=== PATIENT | male | born 1955 | race Caucasian/White ===

== ENCOUNTER 2025-03-07 07:47 | Emergency (ER) | payer OTHER, SELFPAY ==
[2018-01-17 13:02] VITALS: BMI 32.5
[2025-03-07] VITALS (16 sets, daily range): BP systolic 115–140; BP diastolic 67–93; PULSE 49–82; RESP 12–39; TEMP 36.4; O2SAT 90–100; BMI 32.5
--- NOTE | 2025-03-07 07:51 | DI.RAD.S_ITS ---
PROCEDURE: XR CHEST 1V INDICATIONS: Chest Pain TECHNIQUE: One view of the chest was acquired. COMPARISON: Outside Facility, CR, XR CHEST 2V, 05/14/2023, 14:40. FINDINGS: Surgical changes and devices: Abdominal surgical clips. Lungs and pleura: Lungs are clear. No pleural effusions or pneumothorax. Mediastinum: Mediastinal contours appear normal. Heart size is normal. Bones and chest wall: No suspicious bony lesions. Overlying soft tissues appear unremarkable. IMPRESSION: No acute cardiopulmonary abnormality is seen. Dictated by: Brian Woody M.D. on 03/07/2025 at 8:25 Approved by: Brian Woody M.D. on 03/07/2025 at 8:26
--- NOTE | 2025-03-07 07:51 | EKG_ITS ---
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
--- NOTE | 2025-03-07 08:21 | PC.NURSE ---
Pt reports feeling palpitations on Tuesday. Hx of afib on medication for rate control and blood thinner. Pt states he was not a candidate for ablation due to arteries being affected by cancer treatment. 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 Pt states he has lower extremity edema that is controlled by compression socks. Pt states he is usually sob on exertion. Pt reports he is sob right now due to recent ambulation. afib noted on monitor.
--- NOTE | 2025-03-07 08:24 | ED.CHESTPAIN ---
HPI - Chest Pain General Chief Complaint: Chest Pain Stated Complaint: AFIB , Weak, hard time walking Time Seen by Provider: 03/07/25 08:11 Source: family Mode of arrival: Family Vehicle History of Present Illness HPI narrative: Patient here with . Had syncopal episode this morning just prior to arrival. Duration less than 2 minutes. Patient had made him have some tea this morning and walked to sit down in the recliner. turned around to find him pale, unconscious. Had his right arm behind him. She shook him to wake him up he would not. And then eventually was able to say his name. No seizure activity. This is never happened before. Patient has history of atrial fibrillation on Eliquis. He has felt short of breath and weak all of the this week. Patient sees Cardiology Dr. Dial with [facility]. Patient seen by Dr. Durand, February 12 last month for shortness of breath. He is being evaluated for asthma but patient states this shortness of breath there this week is different. No chest pain no palpitations. He is in AFib and this is not new. This is rate controlled. He has been cardioverted in the past. He has never passed out with AFib before. Patient denies any symptoms before fainting, no chest pain dizziness shortness of breath back pain abdominal pain nausea or sweating Related Data Home Medications ?Medication ?Instructions ?Recorded ?Confirmed fluticasone propionate 50 1 spray intranasal BID PRN 01/02/18 02/12/25 mcg/actuation nasal Congestion spray,suspension (Flonase Allergy Relief) pentoxifylline 400 mg 400 mg PO TID 01/02/18 02/12/25 tablet,extended release apixaban 5 mg tablet (Eliquis) 5 mg PO BID 01/02/25 02/12/25 dofetilide 500 mcg capsule 500 mcg PO BID 01/02/25 02/12/25 fexofenadine 180 mg tablet 180 mg PO DAILY PRN 01/02/25 02/12/25 (Kezia Hives) metoprolol tartrate 25 mg tablet 25 mg PO DAILY PRN 01/02/25 02/12/25 Previous Rx's ?Medication ?Instructions ?Recorded fluticasone fur. 200 mcg-umeclid 1 inh inhalation DAILY #60 ea 01/02/25 62.5 mcg-vilant 25 mcg inhalat.powder (Trelegy Ellipta) Allergies Allergy/AdvReac Type Severity Reaction Status Date / Time No Known Drug Allergies Allergy Verified 02/12/25 09:07 Review of Systems Review of Systems Narrative: GENERAL: Negative chills, fatigue, malaise, fever, sweats. HEENT: Negative sinus pain, ear pain, sore throat RESPIRATORY: Positive dyspnea, negative cough CARDIOVASCULAR: Negative chest pain, palpitations, positive syncope GASTROINTESTINAL: Negative vomiting, nausea, abdominal pain : Negative dysuria, frequency, hematuria MUSCULOSKELETAL: Negative muscle or bony pain SKIN: Negative rash, skin lesions NEUROLOGIC: Negative weakness, numbness ROS Unobtainable: All systems reviewed & are unremarkable except as noted in HPI and below Patient History Medical History Right testicular cancer Bruises easily Anticoagulant long-term use Nocturia Non Hodgkin's lymphoma Chronic deep vein thrombosis (DVT) Osteoarthritis Varicose veins of both lower extremities Fingertip amputation Allergic rhinitis Arthritis Social History (System 01/18/18 @ 09:38 by Alejandra Toth) household members: spouse Smoking Status: Never smoker alcohol intake: current Smoking Status: Never smoker alcohol intake frequency: a few times a month Exam Narrative Exam Narrative: GENERAL: in no distress, not toxic not dyspneic HEAD: Normocephalic. EYES: Pupils equal round ENT: Mucous membranes moist. NECK: Trachea midline. CARDIOVASCULAR: Irregularly irregular RESPIRATORY: Clear to auscultation. Breath sounds equal bilaterally. No wheezes, rales, or rhonchi. GASTROINTESTINAL: Abdomen soft, non-tender EXTREMITIES: No gross deformities. BACK: No flank tenderness. NEURO: AOx4. Clear speech no facial droop light touch intact to bilateral face hands and legs strong equal supervisor transferring and boxing. Negative pronator drift. Fast exam is negative SKIN: Warm and dry PSYCH: Not anxious, is cooperative Initial Vital Signs Initial Vital Signs: Vital Signs Pulse Rate 65 03/07/25 07:55 Blood Pressure 115/75 03/07/25 07:55 Pulse Oximetry 100 03/07/25 07:55 Course Orders Ordered: Discontinued Medications Aspirin (Aspirin 81 Mg Chew Tab) 324 mg PO NOW ONE Stop: 03/07/25 07:52 Last Admin: 03/07/25 08:05 Dose: Not Given Documented By: JERSON Sodium Chloride (Normal Saline 0.9%) 500 mls @ 1,000 mls/hr IV BOLUS ONE Stop: 03/07/25 08:52 Last Infusion: 03/07/25 09:40 Dose: Infused Documented By: Admin: 03/07/25 08:39 Dose: 1,000 mls/hr Documented By: JERSON Vital Signs Vital signs: Vital Signs - 8 hr 03/07/25 07:58 Temperature 97.6 F Pulse Rate 82 Respiratory Rate 12 Blood Pressure 115/75 Pulse Oximetry 98 Oxygen Delivery Method Room Air MDM - Chest Pain Medical Records Data Medical records narrative: Dear Jacqueline Hills PA-C, Dr. Mauricio Sharma I would the pleasure of seeing your patient Aravind Reed who has a pleasant 69-year-old male with a history of obesity on zepbound, testicular cancer in his 20s status post chemotherapy, allergic rhinitis on Kezia and Flonase, atrial fibrillation starting around 2022 on dofetilide, metoprolol and anticoagulation, COVID-19 around 2022 who presents today for evaluation of chronic shortness of breath. His PCP and patient notes he has been dyspneic since 2022 as soon as he went into atrial fibrillation in his annual wellness visit. He was previously walking 3 miles a day previously. He was states that it he was in and out of atrial fibrillation and usually would feel anxious. He underwent a cardioversion initially and then through cardiology management on dofetilide metoprolol and anticoagulation. His shortness of breath persisted since his onset of atrial fibrillation. He was reassured that it was not related to cardiac issue and has had extensive cardiac testing that we did not have access to in terms of cardiac MRI, JUAN, echo and even a CT chest abdomen pelvis.. He was feel dyspneic walking from the parking lot to the store. Interestingly he was states he has albuterol inhaler the uses when he gets congestion addition to Flonase. He had PFTs in March of 2024 read as very mild obstruction, no significant response to bronchodilators however there is a 44% improvement in mid expiratory flows. He shows me his labs showing an AUC of 100. He reportedly had a chest x-ray that was normal but we did not have a copy of the report in neither his CT chest abdomen pelvis which was done in 2023 at [facility]. I recommend a trial of triple therapy with Trelegy for potential asthma. He reports he did not feel much of a difference although now that he was stopped it he was noticing some worsening days. We also reviewed that deconditioning could be contributing given his 2 years of shortness of breath though may not has been the initial culprit. Other differentials were likely related to heart failure preserved ejection fraction and it was not clear ever had a right heart catheterization to assess for this. Finally long COVID could be an etiology given the timing shortness of breath in 2022 although it was more temporarily related to atrial fibrillation that it was he was COVID infection. He reports he has been out of atrial fibrillation since August 2024 with the Tikosyn. Lab Data 03/07/25 08:10 03/07/25 08:10 Labs: Lab Results 03/07/25 Range/Units 08:10 WBC 5.3 (4.5-11.0) X10^3/uL RBC 3.99 L (4.5-5.9) X10^6/uL Hgb 14.0 (13.5-17.5) g/dL Hct 39.7 L (41-53) % MCV 99.7 (80-100) fL MCH 35.2 H (26-34) PG MCHC 35.3 (30-36) % RDW 12.9 (11.6-14.8) % Plt Count 269 (150-400) X10^3/uL Neut % (Auto) 69.3 (50-75) % Lymph % (Auto) 17.0 L (25-40) % [place] % (Auto) 10.6 (3-14) % Eos % (Auto) 2.4 (2-4) % Baso % (Auto) 0.7 (0-2) % Neut # (Auto) 3700 (0440-2348) /uL Lymph # (Auto) 900 L (6445-7008) /uL [place] # (Auto) 600 (0-900) /uL Eos # (Auto) 100 (0-450) /uL Baso # (Auto) 0 (0-100) /uL PT 14.1 H (9.4-12.5) SECONDS INR 1.2 (0.9-1.3) APTT 34 (25.1-36.5) SECONDS D-Dimer 242 (<500) ng/ml Sodium 136 L (137-145) mmol/L Potassium 4.6 (3.4-5.1) mmol/L Chloride 104 (98-107) mmol/L Carbon Dioxide 24 (22-32) mmol/L BUN 14 (9-20) mg/dL Creatinine 0.93 (0.66-1.25) mg/dL Estimated GFR > 60 (>60) mL/min BUN/Creatinine Ratio 15.1 (6-22) Glucose 93 (70-99) mg/dL Calcium 9.7 (8.4-10.2) mg/dL Magnesium 2.0 (1.6-2.3) mg/dL Total Bilirubin 1.0 (0.2-1.3) mg/dL AST 32 (17-59) IU/L ALT 29 (<50) IU/L Alkaline Phosphatase 96 (38-126) U/L Total Creatine Kinase 44 L (55-170) U/L Troponin I < 0.012 (0.01-0.034) ng/mL NT-Pro-B Natriuret Pep 788 H (<125) pg/mL Total Protein 7.6 (6.3-8.2) g/dL Albumin 4.3 (3.5-5.0) g/dL Globulin 3.3 (1.7-4.1) g/dL Albumin/Globulin Ratio 1.3 (1.0-2.8) Lipase 55 (23-300) U/L Imaging Data CT scan - head: Radiologist's Impression: [place] [address] CT Scan Report Signed Patient: Aravind Reed MR#: [id number] : 1955 Acct:[id number] Age/Sex: 69 / M Date of Service: 03/07/25 Loc: ED Accession Number: [id number] Procedure: CT head/brain wo con Ordering Provider: Crow Soares MD PROCEDURE: CT HEAD/BRAIN WO CON INDICATIONS: Syncope/dizzy TECHNIQUE: Noncontrast 4.5 mm thick angled axial sections acquired from the foramen magnum to the vertex, with coronal and sagittal reformats. For radiation dose reduction, the following was used: automated exposure control, adjustment of mA and/or kV according to patient size. COMPARISON: [facility], CT, CT ANGIO HEAD AND NECK, 03/07/2025, 8:28. FINDINGS: Image quality: Diagnostic. CSF spaces: Basal cisterns are patent. No extra-axial fluid collections. The ventricles are symmetric in size and shape. Brain: No intracranial bleeds or mass effect. There are minimal periventricular and deep white matter chronic small vessel ischemic changes. There is intracranial internal carotid artery atherosclerosis. Skull and face: Calvarium and visualized facial bones appear intact, without suspicious lesions. Sinuses: Visualized sinuses and mastoids are clear. IMPRESSION: No acute intracranial pathology. Dictated by: Dede Ortiz M.D. on 03/07/2025 at 9:17 Approved by: Dede Ortiz M.D. on 03/07/2025 at 9:17 CTA - brain/neck: Radiologist's Impression: [address] [address] [address] Scan Report Signed Patient: Aravind Reed MR#: [id number] : 1955 Acct:[id number] Age/Sex: 69 / M Date of Service: 03/07/25 Loc: ED Accession Number: [id number] Procedure: CT angio head and neck Ordering Provider: Crow Soares MD PROCEDURE: CT ANGIO HEAD AND NECK INDICATIONS: Syncope/dizzy TECHNIQUE: After the administration of intravenous contrast, 1 mm thick sections acquired from the aortic arch through the [place] of [place]. 3-dimensional pskayhn-qmahtqolq-hxwkhzgjmd (MIP) and/or volume rendering reformats were acquired of the central intracranial vasculature and neck separately. For radiation dose reduction, the following was used: automated exposure control, adjustment of mA and/or kV according to patient size. COMPARISON: [facility], CT, CT HEAD/BRAIN WO CON, 03/07/2025, 8:28. FINDINGS: Image quality: Diagnostic. Cerebral CT Angiogram: Internal carotid arteries: No acute findings. Intracranial ICA are patent with no significant stenosis. No occlusion. No aneurysm. Anterior cerebral arteries: Unremarkable. No significant stenosis. No occlusion. No aneurysm. Middle cerebral arteries: Unremarkable. No significant stenosis. No occlusion. No aneurysm. Posterior cerebral arteries: Unremarkable. No significant stenosis. No occlusion. No aneurysm. Basilar artery: Unremarkable. No significant stenosis. No occlusion. No aneurysm. Vertebral arteries: Unremarkable as visualized. Dural venous sinuses: Unremarkable given phase of enhancement. Other: Arterial phase appearance of the brain parenchyma is unremarkable. Neck CT Angiogram: Internal carotid arteries: Unremarkable. No significant stenosis. No dissection or occlusion. Common carotid arteries: Unremarkable. No significant stenosis. No dissection or occlusion. External carotid arteries: Unremarkable. No occlusion. Vertebral arteries: Unremarkable. No significant stenosis. No dissection or occlusion. Aortic Arch and Mediastinum: Partially visualized aortic arch unremarkable without evidence of aneurysm. Origins of the great vessels unremarkable. Other: Arterial phase soft tissues of the neck and chest are unremarkable. Right chest wall lipoma. IMPRESSION: No significant intracranial arterial abnormality is seen. No significant abnormality is seen within the arteries of the neck. Any quantitative measurements of stenosis were performed using NASCET criteria. Dictated by: Dede Ortiz M.D. on 03/07/2025 at 9:14 Approved by: Dede Ortiz M.D. on 03/07/2025 at 9:15 Chest x-ray: Radiologist's Impression: [address] [address] XRay Report Signed Patient: Aravind Reed MR#: [id number] : 1955 Acct:[id number] Age/Sex: 69 / M Date of Service: 03/07/25 Loc: ED Accession Number: [id number] Procedure: XR chest 1V Ordering Provider: Crow Soares MD PROCEDURE: XR CHEST 1V INDICATIONS: Chest Pain TECHNIQUE: One view of the chest was acquired. COMPARISON: Outside Facility, CR, XR CHEST 2V, 05/14/2023, 14:40. FINDINGS: Surgical changes and devices: Abdominal surgical clips. Lungs and pleura: Lungs are clear. No pleural effusions or pneumothorax. Mediastinum: Mediastinal contours appear normal. Heart size is normal. Bones and chest wall: No suspicious bony lesions. Overlying soft tissues appear unremarkable. IMPRESSION: No acute cardiopulmonary abnormality is seen. Dictated by: Brian Woody M.D. on 03/07/2025 at 8:25 Approved by: Brian Woody M.D. on 03/07/2025 at 8:26 MRI brain: Radiologist's Impression: [address] [address] Magnetic Resonance Report Signed Patient: Aravind Reed MR#: [id number] : 1955 Acct:[id number] Age/Sex: 69 / M Date of Service: 03/07/25 Loc: ED Accession Number: [id number] Procedure: MR head/brain wo con Ordering Provider: Crow Soares MD PROCEDURE: MR HEAD/BRAIN WO CON INDICATIONS: dizzy/syncope TECHNIQUE: Noncontrast axial T1 spin echo, axial T2 fast spin echo, sagittal and axial FLAIR, coronal T2 fast spin echo, axial gradient echo, axial diffusion and ADC through the brain. COMPARISON: Prior head CT and CT angiogram earlier same day reviewed.. FINDINGS: Image quality: Excellent. CSF Spaces: Basal cisterns are patent. No extra-axial fluid collections. Ventricles are normal in size and shape. Brain: No intracranial masses or hemorrhage. [place]/white matter interface is normal. Brainstem appears normal. Diffusion-weighted images demonstrate no acute infarct. No chronic ischemic insults. Normal intravascular flow voids are present. Skull and face: Calvarium has normal marrow signal. Orbits appear normal. Sinuses: Sinuses and mastoids are clear. IMPRESSION: No acute disease, mild microvascular atherosclerotic change. Source of current symptoms is not found. Dictated by: Arden Nelson M.D. on 03/07/2025 at 12:32 Approved by: Arden Nelson M.D. on 03/07/2025 at 12:33 [facility] Narrative Medical decision making narrative: Patient here with . Had syncopal episode this morning just prior to arrival. Duration less than 2 minutes. Patient had made him have some tea this morning and walked to sit down in the recliner. turned around to find him pale, unconscious. Had his right arm behind him. She shook him to wake him up he would not. And then eventually was able to say his name. No seizure activity. This is never happened before. Patient has history of atrial fibrillation on Eliquis. He has felt short of breath and weak all of the this week. Patient sees Cardiology Dr. Dial with [facility]. Patient seen by Dr. Durand, February 12 last month for shortness of breath. He is being evaluated for asthma but patient states this shortness of breath there this week is different. No chest pain no palpitations. He is in AFib and this is not new. This is rate controlled. He has been cardioverted in the past. He has never passed out with AFib before. Patient denies any symptoms before fainting, no chest pain dizziness shortness of breath back pain abdominal pain nausea or sweating After history and exam, CBC CMP troponin CT head CT angiogram head and neck normal saline EKG [facility] Medical records reviewed: February 12, 2025 pulmonary office visit Differential considered: Includes but not limited to stroke syncope seizure PA TIA Lab Test results independently reviewed as above. Pertinent findings: WBC 5.3 hemoglobin 14 sodium 136 potassium 4.6 INR 1.2 GFR greater than 60 BNP 788 troponin less than 0.012, D-dimer 242 Independently reviewed EKG atrial fibrillation rate 71, repeat EKG at 11:29 a.m.. Sinus bradycardia rate 53 Imaging studies independently reviewed: CT head CT angiogram head and neck no acute finding, chest x-ray no acute finding MRI brain no acute finding Consultations: 11:33 a.m.. I spoke with patient's meter/relay craftsman Dr. Dial, no admission or transfer indicated. Patient can have outpatient echocardiogram and Holter monitoring. Patient has converted to sinus rhythm rate 53. Re-evaluations: 11:28 a.m.. Patient has converted to sinus rhythm. Rate is controlled. We will order MRI brain and repeat EKG. Reviewed results so far with patient. CT imaging studies are reassuring. Awaiting to hear back from his cardiology services. 1:44 p.m.. Patient doing well. Reviewed results and MRI in my discussion with this meter/relay craftsman with patient and . Patient has been asymptomatic during course of stay. Patient feeling much better. They do desire discharge home. They do understand will need outpatient echocardiogram and Holter monitoring by their meter/relay craftsman. They will call today. They desire discharge home Discussion: Appropriate for discharge home. Exam is reassuring. Patient has converted to sinus rhythm. Syncopal episode could be due to arrhythmia which can be worked up outpatient according to patient's meter/relay craftsman Dr. Dial. Return precautions reviewed. They desire discharge home. Diagnosis: Syncope/AFib Discharge Plan Departure Patient Disposition: Home Clinical Impression: Syncope and collapse Instructions: DI for Syncope in Adults (Fainting), DI for Atrial Fibrillation Activity Restrictions/Additional Instructions: Your exam and laboratory studies imaging studies are reassuring. Your meter/relay craftsman was contacted today. I am glad you are feeling better. Please schedule outpatient echocardiogram of your heart and Holter monitoring through your family doctor or your meter/relay craftsman. Please continue home medications. Return if worse if any questions or concerns. I am glad that you are back in sinus rhythm. Prescriptions: No Action pentoxifylline 400 mg Tablet Extended Release 400 mg PO TID fluticasone propionate [Flonase Allergy Relief] 50 mcg/actuation [place],Suspension 1 spray INTRANASAL BID PRN (Reason: Congestion) Eliquis 5 mg tablet 5 mg PO BID dofetilide 500 mcg capsule 500 mcg PO BID metoprolol tartrate 25 mg tablet 25 mg PO DAILY PRN Patient Comments: Per Pt. / Pt. takes Metoprolol (in addition to the Losartan) when he goes in to AFIB. fexofenadine [Kezia Hives] 180 mg tablet 180 mg PO DAILY PRN Trelegy Ellipta 200-62.5-25 mcg blister with device 1 inh inhalation DAILY Qty: 60 1RF Rx Instructions: rinse mouth with water, gargle and spit after each use Referrals: Jacqueline Hills ARNP [Primary Care Provider, Nursing] Stand Alone Forms: Patient Portal/API
[2025-03-07 08:28] LABS: Add Manual Diff / Slide Review NO; Hematocrit 39.7 % (41-53); Hemoglobin 14.0 g/dL (13.5-17.5); Lymphocytes Absolute Auto 900 /uL (1100-4500); Mean Corpuscular HGB Conc 35.3 % (30-36); Mean Corpuscular Hemoglobin 35.2 PG (26-34); Mean Corpuscular Volume 99.7 fL (80-100); Platelet Count 269 X10^3/uL (150-400)
[2025-03-07 08:29] LABS: INR 1.2 (0.9-1.3); Prothrombin Time 14.1 SECONDS (9.4-12.5)
[2025-03-07 08:31] LABS: PTT Partial Thromboplastin Tim 34 SECONDS (25.1-36.5)
[2025-03-07 08:37] LABS: Alanine Aminotransferase 29 IU/L (<50); Albumin 4.3 g/dL (3.5-5.0); Albumin Globulin Ratio 1.3 (1.0-2.8); Alkaline Phosphatase 96 U/L (38-126); Blood Urea Nitrogen 14 mg/dL (9-20); Calcium 9.7 mg/dL (8.4-10.2); Carbon Dioxide 24 mmol/L (22-32); Chloride 104 mmol/L (98-107); Creatine Kinase 44 U/L (55-170); Estimated Glomerular Filt Rate > 60 mL/min (>60); Globulin 3.3 g/dL (1.7-4.1); Glucose 93 mg/dL (70-99); HEMOLYSIS < 15 (0-50); Lipase 55 U/L (23-300); Magnesium 2.0 mg/dL (1.6-2.3); Potassium 4.6 mmol/L (3.4-5.1); Sodium 136 mmol/L (137-145); Total Protein 7.6 g/dL (6.3-8.2)
[2025-03-07] MEDS: SODIUM CHLORIDE 0.9% 500 ML 1000 ML IV (08:39)
[2025-03-07 08:48] LABS: NT-proBNP (BNP-Adult 18+) 788 pg/mL (<125); Troponin I < 0.012 ng/mL (0.01-0.034)
--- NOTE | 2025-03-07 10:54 | PC.NURSE ---
Pt came to ER refusing care. Stating she did not want any blood work taken or any tests done (refused radiology imaging). Pt was asking for medication. She stated I want three medications. Pt asked for food and drink (food and drink provided). Pt then provided dry clothes. While this RN and Nancy ANGELA were attempting to help pt to get dressed pt put dry clothes on top of wet clothes. Pt instructed that we needed to put her in dry clothes (shirt, pants, socks, underwear) to help promote healing. Pt insisted she do it on her own. Pt then stated she wanted to leave. Fany MCNULTY informed that pt wished to leave (just before 1020). Fany stated she needed to get medically clear as pt is incoherent and possibly sick. Pt instructed we needed her to stay to run tests. Pt refused and then started to threaten staff stating she will fight us and swearing. Pt spit coming from mouth and yelling involved. (@ 1020) Security at bedside; denia sierra called. After multiple attempts at deescalation RN asked security to call for police help. Police came as RN was attempting to medicate pt (@ 1025) While CPI was used to help prevent pt from hurting staff pt attempted to bite staff. Pt was medicated and put in four point locking restraints. Profusion and pulses intact in all four extremities; no issues noted with skin integrity. Pt informed of process and staff asked for pt's cooperation. Sitter at bedside. Pt hooked up to monitor (@1040)
--- NOTE | 2025-03-07 11:26 | DI.MRI.S_ITS ---
PROCEDURE: MR HEAD/BRAIN WO CON INDICATIONS: dizzy/syncope TECHNIQUE: Noncontrast axial T1 spin echo, axial T2 fast spin echo, sagittal and axial FLAIR, coronal T2 fast spin echo, axial gradient echo, axial diffusion and ADC through the brain. COMPARISON: Prior head CT and CT angiogram earlier same day reviewed.. FINDINGS: Image quality: Excellent. CSF Spaces: Basal cisterns are patent. No extra-axial fluid collections. Ventricles are normal in size and shape. Brain: No intracranial masses or hemorrhage. [place]/white matter interface is normal. Brainstem appears normal. Diffusion-weighted images demonstrate no acute infarct. No chronic ischemic insults. Normal intravascular flow voids are present. Skull and face: Calvarium has normal marrow signal. Orbits appear normal. Sinuses: Sinuses and mastoids are clear. IMPRESSION: No acute disease, mild microvascular atherosclerotic change. Source of current symptoms is not found. Dictated by: Arden Nelson M.D. on 03/07/2025 at 12:32 Approved by: Arden Nelson M.D. on 03/07/2025 at 12:33
--- NOTE | 2025-03-07 11:29 | EKG_ITS ---
[address] [address] Test Date: 2025-03-07 Pat Name: Aravind Reed Department: Room: Gender: Male Slip Filler: ANDREW : 1955 Requested By: Order Number: [id number] Reading MD: David Bocanegra MD Measurements Intervals [place] Rate: 53 P: 39 VT: 202 QRS: 26 QRSD: 88 T: 43 QT: 470 QTc: 441 Interpretive Statements Sinus bradycardia Electronically Signed On 03-07-2025 16:51:17 PDT by David Bocanegra MD
== END 2025-03-07 13:52 | disposition home or self-care (01) ==
PROVIDERS: Emergency Provider Emergency Medicine; Family Provider Nurse Practitioner Family; PCP Nurse Practitioner Family
DX: R55 Syncope and collapse (principal); I48.91 Unspecified atrial fibrillation; Z79.01 Long term (current) use of anticoagulants; R06.00 Dyspnea, unspecified; Z85.47 Personal history of malignant neoplasm of testis; R07.9 Chest pain, unspecified
CPT/HCPCS: 36415; 70450; 70496; 70498; 70551; 71045; 80053; 82550; 83690; 83735; 83880; 84484; 85025; 85379; 85610; 85730; 93005; 93010; 96360; 99284; Q9967